=== PATIENT | male | born 1985 | race American Indian/Alaskan Native ===

== ENCOUNTER 2022-03-11 20:55 | Inpatient (IN) | payer OTHER ==
[2022-03-11] MEDS ORDERED: chlordiazePOXIDE 25 MG CAP PO PRN ×2 (21:58)
[2022-03-11] MEDS ORDERED: MIDAZOLAM 2 MG/2 ML INJ IV ONE (21:58)
[2022-03-11] MEDS ORDERED: ACETAMINOPHEN 500 MG TAB PO ONE (21:58)
[2022-03-11] MEDS ORDERED: LORazepam 2 MG/ML VIAL IV PRN (21:58)
[2022-03-11] MEDS ORDERED: SODIUM CHLORIDE 0.9% 1000 ML 1,000 ML IV ONE (21:58)
[2022-03-11] MEDS ORDERED: KETOROLAC 30 MG/1 ML INJ IV ONE (21:59)
[2022-03-11] MEDS ORDERED: METOCLOPRAMIDE 10 MG/2 ML INJ IV ONE (22:02)
--- NOTE | 2022-03-11 22:08 | Emergency Department Report ---
ED General Adult HPI - General Chief complaint: Chest Pain Stated complaint: VOMITING/CHEST PAIN,LEG PAIN,CHILLS PUI?: Yes Time Seen by Provider: 03/11/22 21:48 Source: patient, EMS, RN notes reviewed Mode of arrival: Stretcher Limitations: No Limitations - History of Present Illness Initial comments: The patient was evaluated in the emergency department for symptoms described in the history of present illness. He/she was evaluated in the context of the global COVID-19 pandemic, which necessitated consideration that the patient might be at risk for infection with the virus that causes COVID-19. Institutional protocols and algorithms that pertain to the evaluation of patients at risk for COVID-19 are in a state of rapid change based on information released by regulatory bodies including the CDC and federal and state organizations. These policies and algorithms were followed during the patient's care in the emergency department. Please note that these policies, procedures and recommendations changed on a rapid basis. This is a 36-year-old gentleman, with a past medical history of hyperlipidemia, currently on a statin, and metoprolol, also taking a multivitamin, folic acid. Also takes magnesium supplementation. Reports he is recently diagnosed with colon cancer. He is not currently on chemotherapy or radiation therapy. He reports she has received his COVID-19 vaccination. He presents to the emergency department today with complaints of diffuse myalgias, body aches, chills, headache, chest wall pain, nausea, vomiting. No loss of taste or smell. Has not taken any medication [id number]. He reports he consumes recreational alcohol, but he he denies chronic/heavy alcohol use. He is not homicidal or suicidal. He reports she is taking folic acid and multivitamin, because of "low vitamin levels." -: days(s) Location: head, chest Consistency: constant Improves with: rest Worsens with: movement - Related Data Allergies Allergy/AdvReac Type Severity Reaction Status Date / Time No Known Allergies Allergy Unverified 03/11/22 21:33 ED Review of Systems ROS: Stated complaint: VOMITING/CHEST PAIN,LEG PAIN,CHILLS Other details as noted in HPI Constitutional: chills, malaise, weakness Eyes: denies: eye discharge ENT: denies: epistaxis Respiratory: denies: cough Cardiovascular: chest pain Gastrointestinal: denies: abdominal pain, diarrhea Genitourinary: denies: dysuria Musculoskeletal: arthralgia, myalgia Neurological: headache, weakness Psychiatric: anxiety. denies: homicidal thoughts, suicidal thoughts ED Past Medical Hx - Past Medical History Previous Medical History?: Yes Hx Hypertension: Yes Hx of Cancer: Yes (Colon) - Surgical History Past Surgical History?: No - Social History Smoking Status: Current Every Day Smoker Substance Use Type: None ED Physical Exam - General Limitations: No Limitations General appearance: alert, anxious, in distress - Head Head exam: Present: atraumatic, normocephalic - Eye Eye exam: Present: normal appearance, EOMI. Absent: nystagmus - ENT ENT exam: Present: mucous membranes dry, normal external ear exam, other (Tongue fasciculations noted) - Neck Neck exam: Present: normal inspection, full ROM. Absent: tenderness, meningismus - Respiratory Respiratory exam: Present: normal lung sounds bilaterally. Absent: respiratory distress, wheezes, rales, rhonchi, stridor, decreased breath sounds - Cardiovascular Cardiovascular Exam: Present: normal rhythm, tachycardia, normal heart sounds. Absent: bradycardia, irregular rhythm, systolic murmur, diastolic murmur, rubs, gallop - GI/Abdominal GI/Abdominal exam: Present: soft. Absent: distended, tenderness, guarding, rebound, rigid, pulsatile mass - Rectal Rectal exam: Present: deferred - Extremities Exam Extremities exam: Present: normal inspection, full ROM, other (2+ pulses noted in the bilateral upper and lower extremities. There is no palpable cord. negative Homans sign. Muscular compartments are soft. The pelvis is stable.). Absent: pedal edema, calf tenderness - Back Exam Back exam: Present: normal inspection. Absent: tenderness, CVA tenderness (R), CVA tenderness (L), paraspinal tenderness, vertebral tenderness - Neurological Exam Neurological exam: Present: alert, oriented X3, other (No facial droop. Tongue midline. Extraocular movements intact bilaterally. Facial sensation intact to light touch in V1, V2, V3 distribution bilaterally. 5 and a 5 strength in 4 extremities. Sensation intact to light touch in 4 extremities.). Absent: motor sensory deficit - Psychiatric Psychiatric exam: Present: anxious. Absent: homicidal ideation, suicidal ideation - Skin Skin exam: Present: warm, dry, intact, normal color. Absent: rash ED Course Vital Signs 03/11/22 03/11/2222 21:33 21:55 22:01 Temperature 98.9 F Pulse Rate 102 H 99 H 110 H Respiratory 18 22 21 Rate Blood Pressure 127/89 111/75 Blood Pressure 111/75 [Left] O2 Sat by Pulse 100 99 98 Oximetry O2 Sat by Pulse Oximetry [ Digit-Finger] 03/11/22 03/11/22 03/11/22 22:15 22:25 22:27 Temperature Pulse Rate 85 Respiratory 19 18 18 Rate Blood Pressure 115/68 Blood Pressure [Left] O2 Sat by Pulse 99 Oximetry O2 Sat by Pulse Oximetry [ Digit-Finger] 03/11/22 03/11/22 03/11/22 22:30 22:45 23:00 Temperature Pulse Rate 100 H 102 H 111 H Respiratory 15 23 22 Rate Blood Pressure 109/71 120/81 132/84 Blood Pressure [Left] O2 Sat by Pulse 97 96 99 Oximetry O2 Sat by Pulse Oximetry [ Digit-Finger] 03/11/22 03/11/22 03/11/22 23:16 23:30 23:46 Temperature Pulse Rate 109 H 111 H 95 H Respiratory 23 26 H 20 Rate Blood Pressure 109/71 104/60 107/57 Blood Pressure [Left] O2 Sat by Pulse 97 95 95 Oximetry O2 Sat by Pulse Oximetry [ Digit-Finger] 03/12/22 03/12/22 03/12/22 00:00 00:14 00:16 Temperature Pulse Rate 106 H 95 H Respiratory 26 H 25 H Rate Blood Pressure 116/81 129/80 Blood Pressure [Left] O2 Sat by Pulse 96 96 Oximetry O2 Sat by Pulse 99 Oximetry [ Digit-Finger] 03/12/22 03/12/22 00:30 01:00 Temperature Pulse Rate 87 120 H Respiratory 26 H 27 H Rate Blood Pressure 129/80 116/72 Blood Pressure [Left] O2 Sat by Pulse 95 Oximetry O2 Sat by Pulse Oximetry [ Digit-Finger] - Reevaluation(s) Reevaluation #1: 03/11/22 22:07 Differential diagnosis, include but not limited to: Influenza, COVID, pneumonia, viremia, electrolyte derangement, thyroid derangement, alcohol withdrawal Assessment and plan: 36-year-old gentleman, who is currently afebrile, with tachycardic, rigors, shaking, reports chills, with dry mucous membranes, and mild tongue fasciculations. He is clinically sober at this time, and does not require 1013. I suspect the patient is downplaying his alcohol use, and I do suspect a component of alcohol withdrawal. I also suspect probable viremia. He reports he is not currently taking chemotherapy or radiation therapy. This emergency room currently does not have access to rapid access COVID testing. We will check him for influenza, obtain appropriate laboratory studies, x-ray the chest. Presuming troponin negative x1, patient at low risk for major adverse cardiac event as per heart score. Denies travel, surgery, immobilization, DVT/PE risk factors. Symptoms going on for days, so troponin negative x1, acute myocardial infarction is ruled out. Discussed the plan of care with the patient. He is agreeable. 03/11/22 23:28 Vomiting resolved. Heart rate 95 bpm. Resting comfortably in stretcher. No acute distress 03/11/22 23:56 Patient is found to have anemia, thrombocytopenia, hypokalemia, hypomagnesemia, hypocalcemia, and transaminitis, as well as hypoalbuminemia. This is suggestive of alcoholic disease. Have recommended admission to the medical service for co rrection of electrolyte derangements and metabolic acidosis. Suspect that metabolic acidosis is secondary to alcoholic starvation ketosis, as well as nausea and vomiting, likely secondary to presumed alcohol withdrawal. The patient is agreeable to admission hospitalization. Awaiting callback from hospital physician to arrange admission Reevaluation #2: 03/12/22 00:14 Dr Melba Macias to admit to [facility] 03/12/22 01:54 Suspect that lactic acidosis is a type II lactic acidosis. This should correct with addressing patient's underlying metabolic derangements and presumed alcohol withdrawal. Patient resting comfortably on stretcher at this time. - Pulse Oximetry Interpretation Digit-Finger Initial Pulse Oximetry Readin O2 Sat by Pulse Oximetry: 99 Actions Taken: none ED Medical Decision Making - Lab Data Result diagrams: 03/11/22 22:57 03/11/22 22:57 Vital Signs 03/11/22 03/11/22 21:33 21:55 Temperature 98.9 F Pulse Rate 102 H 99 H Respiratory 18 22 Rate Blood Pressure 127/89 Blood Pressure 111/75 [Left] O2 Sat by Pulse 100 99 Oximetry Lab Results 06/10/22 06/10/22 06/10/22 Range/Units 22:43 22:57 22:57 WBC 6.0 (4.5-11.0) K/mm3 RBC 3.13 L (3.65-5.03) M/mm3 Hgb 9.0 L (11.8-15.2) gm/dl Hct 27.4 L (35.5-45.6) % MCV 88 (84-94) fl MCH 29 (28-32) pg MCHC 33 (32-34) % RDW 29.1 H (13.2-15.2) % Plt Count 96 L (140-440) K/mm3 PT 15.7 H (12.2-14.9) Sec. INR 1.12 (0.87-1.13) Sodium (137-145) mmol/L Potassium (3.6-5.0) mmol/L Chloride (98-107) mmol/L Carbon Dioxide (22-30) mmol/L Anion Gap mmol/L BUN (9-20) mg/dL Creatinine (0.8-1.3) mg/dL Estimated GFR ml/min BUN/Creatinine Ratio % Glucose (75-100) mg/dL Calcium (8.4-10.2) mg/dL Phosphorus (2.5-4.5) mg/dL Magnesium (1.7-2.3) mg/dL Total Bilirubin (0.1-1.2) mg/dL AST (5-40) units/L ALT (7-56) units/L Alkaline Phosphatase (35-129) units/L Total Creatine Kinase (55-170) units/L Troponin T (0.00-0.029) ng/mL Total Protein (6.3-8.2) g/dL Albumin (3.9-5) g/dL Albumin/Globulin Ratio % TSH (0.270-4.200) mlU/mL Urine Color [place] (Yellow) Urine Turbidity Clear (Clear) Urine pH 6.0 (5.0-7.0) Ur Specific [place] 1.020 (1.003-1.030) Urine Protein 30 mg/dl (Negative) mg/dL Urine Glucose (UA) 50 (Negative) mg/dL Urine Ketones Tr (Negative) mg/dL Urine Blood Neg (Negative) Urine Nitrite Neg (Negative) Urine Bilirubin Neg (Negative) Urine Urobilinogen < 2.0 (<2.0) mg/dL Ur Leukocyte Esterase Neg (Negative) Urine WBC (Auto) 3.0 (0.0-6.0) /HPF Urine RBC (Auto) < 1.0 (0.0-6.0) /HPF U Epithel Cells (Auto) < 1.0 (0-13.0) /HPF Hyaline Casts 2 /LPF Urine Mucus Few /HPF 03/11/22 03/11/22 Range/Units 22:57 22:57 WBC (4.5-11.0) K/mm3 RBC (3.65-5.03) M/mm3 Hgb (11.8-15.2) gm/dl Hct (35.5-45.6) % MCV (84-94) fl MCH (28-32) pg MCHC (32-34) % RDW (13.2-15.2) % Plt Count (140-440) K/mm3 PT (12.2-14.9) Sec. INR (0.87-1.13) Sodium 141 (137-145) mmol/L Potassium 2.7 L* (3.6-5.0) mmol/L Chloride 95.0 L (98-107) mmol/L Carbon Dioxide 24 (22-30) mmol/L Anion Gap 25 mmol/L BUN 2 L (9-20) mg/dL Creatinine 0.9 (0.8-1.3) mg/dL Estimated GFR > 60 ml/min BUN/Creatinine Ratio 2 % Glucose 107 H (75-100) mg/dL Calcium 7.5 L (8.4-10.2) mg/dL Phosphorus 2.70 (2.5-4.5) mg/dL Magnesium 0.70 L* (1.7-2.3) mg/dL Total Bilirubin 1.50 H (0.1-1.2) mg/dL AST 91 H (5-40) units/L ALT 44 (7-56) units/L Alkaline Phosphatase 120 (35-129) units/L Total Creatine Kinase 70 (55-170) units/L Troponin T < 0.010 (0.00-0.029) ng/mL Total Protein 8.2 (6.3-8.2) g/dL Albumin 3.1 L (3.9-5) g/dL Albumin/Globulin Ratio 0.6 % TSH 4.900 H (0.270-4.200) mlU/mL Urine Color (Yellow) Urine Turbidity (Clear) Urine pH (5.0-7.0) Ur Specific [place] (1.003-1.030) Urine Protein (Negative) mg/dL Urine Glucose (UA) (Negative) mg/dL Urine Ketones (Negative) mg/dL Urine Blood (Negative) Urine Nitrite (Negative) Urine Bilirubin (Negative) Urine Urobilinogen (<2.0) mg/dL Ur Leukocyte Esterase (Negative) Urine WBC (Auto) (0.0-6.0) /HPF Urine RBC (Auto) (0.0-6.0) /HPF U Epithel Cells (Auto) (0-13.0) /HPF Hyaline Casts /LPF Urine Mucus /HPF - EKG Data 03/11/22 22:09 The EKG is interpreted by myself at 21: 5 5 Sinus rhythm, 79 bpm. Normal axis. Normal P wave axis. Motion artifact. Multiple PVCs. Abnormal EKG. Not a STEMI - Radiology Data Radiology results: pending, report reviewed, image reviewed interpreted by me: 1 view x-ray of the chest interpreted myself, shows clear lungs, no infiltrate, no pneumothorax. Unremarkable bony anatomy CHEST 1 VIEW INDICATION / CLINICAL INFORMATION: cp weakness. COMPARISON: None available. FINDINGS: SUPPORT DEVICES: None. HEART / MEDIASTINUM: No significa nt abnormality. LUNGS / PLEURA: No significant pulmonary abnormality. BONES: No significant osseous abnormality. ADDITIONAL FINDINGS: No significant additional findings. IMPRESSION: 1. No active cardiopulmonary disease. Signer Name: Otis West II, MD Signed: 03/11/2022 9:29 PM Workstation Name: [id number] Critical care attestation.: If time is entered above; I have spent that time in minutes in the direct care of this critically ill patient, excluding procedure time. ED Disposition Clinical Impression: Metabolic acidosis, Hypokalemia, Hypomagnesemia, Thrombocytopenia, Anemia, Transaminitis, Malnutrition Disposition: 09 ADMITTED INPATIENT Is pt being admited?: Yes Does the pt Need Aspirin: No Condition: Good
--- NOTE | 2022-03-11 22:34 | XRay Report ---
CHEST 1 VIEW INDICATION / CLINICAL INFORMATION: cp weakness. COMPARISON: None available. FINDINGS: SUPPORT DEVICES: None. HEART / MEDIASTINUM: No significant abnormality. LUNGS / PLEURA: No significant pulmonary abnormality. BONES: No significant osseous abnormality. ADDITIONAL FINDINGS: No significant additional findings. IMPRESSION: 1. No active cardiopulmonary disease. Signer Name: Otis West II, MD Signed: 03/11/2022 10:29 PM Workstation Name: [id number]
[2022-03-11 23:21] LABS: Bilirubin,Urine NEG (Negative); Blood,Urine NEG (Negative); Color,Urine Amber (Yellow); Hyaline Casts,Urine 2 /LPF; Mucus,Urine FEW /HPF; RBC,Urine < 1.0 /HPF (0.0-6.0); Urobilinogen,Urine < 2.0 mg/dL (<2.0)
[2022-03-11 23:27] LABS: Hematocrit 27.4 % (35.5-45.6); Mean Corpuscular HGB Conc 33 % (32-34); Mean Corpuscular Volume 88 fl (84-94); Red Blood Count 3.13 M/mm3 (3.65-5.03)
[2022-03-11 23:28] LABS: Platelet Count 96 K/mm3 (140-440); Red Cell Distribution Width 29.1 % (13.2-15.2)
[2022-03-11 23:33] LABS: INR 1.12 (0.87-1.13)
[2022-03-11 23:41] LABS: Alanine Aminotransferase 44 units/L (7-56); Albumin 3.1 g/dL (3.9-5); BUN/Creatinine Ratio 2; Blood Urea Nitrogen 2 mg/dL (9-20); Calcium 7.5 mg/dL (8.4-10.2); Hemolysis Index 5
[2022-03-11] MEDS ORDERED: POTASSIUM CHLORIDE 20 MEQ 20 MEQ/100 ML BAG IV SCH (23:45)
[2022-03-11] MEDS ORDERED: MAGNESIUM SULFATE 2 GM/50 ML BAG IV ONE (23:53)
[2022-03-11] MEDS ORDERED: MULTIPLE VITAMIN IV ONE (23:53)
[2022-03-11] MEDS ORDERED: [UNRECOGNIZED DRUG - OTHER] IV ONE (23:53)
[2022-03-11] MEDS ORDERED: CALCIUM CARBONATE 500 MG TAB CHEW PO ONE (23:53)
[2022-03-11] MEDS ORDERED: THIAMINE IV ONE (23:53)
[2022-03-11] MEDS ORDERED: POTASSIUM CHLORIDE ER 20 MEQ TAB PO ONE (23:53)
[2022-03-11] MEDS ORDERED: FOLIC ACID IV ONE (23:53)
[2022-03-11] MEDS ORDERED: MAGNESIUM OXIDE 400 MG TAB PO STA (23:53)
[2022-03-12 00:06] LABS: Basophils % (Manual) 0 % (0.0-1.8); Eosinophils % (Manual) 0 % (0.0-4.3); Total Cells Counted 100
[2022-03-12 00:07] LABS: Hypochromasia 2+; Ovalocytes Few; Platelet Estimate Consistent w Auto; Poikilocytosis 1+; Target Cells 1+
[2022-03-12] MEDS: LORazepam 2 MG/ML VIAL IV PRN ×2 (00:44→04:47)
[2022-03-12] MEDS ORDERED: CALCIUM CARBONATE 500 MG TAB CHEW PO ONE (01:00)
[2022-03-12] MEDS ORDERED: ONDANSETRON 4 MG/2 ML INJ ONE (01:01)
[2022-03-12] MEDS ORDERED: MORPHINE 2 MG/1 ML INJ IV PRN (01:08)
[2022-03-12] MEDS ORDERED: IBUPROFEN 600 MG TAB PO PRN (01:08)
[2022-03-12] MEDS ORDERED: ONDANSETRON 4 MG/2 ML INJ IV PRN (01:08)
[2022-03-12] MEDS ORDERED: MAGNESIUM HYDROXIDE (MOM) ORAL LIQD UDC PO PRN (01:08)
[2022-03-12] MEDS ORDERED: MORPHINE 4 MG/1 ML INJ IV PRN (01:08)
[2022-03-12] MEDS ORDERED: SODIUM CHLORIDE 0.9% 1000 ML 1,000 ML IV SCH (01:15)
--- NOTE | 2022-03-12 01:27 | History and Physical Report ---
History of Present Illness Date of examination: 03/12/22 Date of admission: 03/12/2022 Chief complaint: Generalized body aches and Pain History of present illness: 36-year-old -[place] male with known history of hypertension, hyperlipidemia and history of alcohol abuse presenting to the emergency room today complaining of generalized body aches/pain, chills, nausea and vomiting. Patient states he was recently diagnosed with colon cancer but has not been p laced on any chemotherapy or radiation therapy. He admits that he was an alcoholic in the past but has been trying to cut back on his alcohol intake. Last alcohol intake was few days ago. He denies any chest pain or shortness of breath, denies any sick contacts and no recent travel. He has been vaccinated against COVID-19. Work-up in the emergency room today, labs significant for potassium of 2.7, lactic acid of 7.1, magnesium of 0.7, alcohol level of less than 0.01 hemoglobin of 9 and hematocrit of 27.4. AST of 91. Total bilirubin of 1.5. Chest x-ray was unremarkable. Past History Past Medical History: hypertension, other (Recently diagnosed colon cancer) Past Surgical History: No surgical history Social history: smoking (Current daily smoker), alcohol abuse (Former alcoholic) Family history: no significant family history Medications and Allergies Allergies Allergy/AdvReac Type Severity Reaction Status Date / Time No Known Allergies Allergy Unverified 03/11/22 21:33 Active Meds: Active Medications Chlordiazepoxide HCl (Chlordiazepoxide 25 Mg Cap) 50 mg PO Q1H PRN PRN Reason: CIWA-Ar 8-15 Chlordiazepoxide HCl (Chlordiazepoxide 25 Mg Cap) 100 mg PO Q1H PRN PRN Reason: CIWA-Ar 16-25 Heparin Sodium (Porcine) (Heparin 5,000 Unit/1 Ml Vial) 5,000 unit SUB-Q Q8HR YOLANDA Thiamine HCl 100 mg/ Folic Acid 1 mg/ Multivitamins/Minerals 10 ml/ Potassium Chloride 60 meq/ Sodium Chloride 1,041.2 mls @ 250 mls/hr IV ONCE ONE Stop: 03/12/22 04:02 Last Admin: 03/12/22 00:36 Dose: 250 mls/hr Sodium Chloride (Nacl 0.9% 1000 Ml) 1,000 mls @ 125 mls/hr IV DIRECT YOLANDA Ibuprofen (Ibuprofen 600 Mg Tab) 600 mg PO Q6H PRN PRN Reason: Pain, Mild (1-3) Lorazepam (Lorazepam 2 Mg/Ml Vial) 2 mg IV Q1H PRN PRN Reason: CIWA-Ar 8-15 Last Admin: 03/12/22 00:44 Dose: 2 mg Lorazepam (Lorazepam 2 Mg/Ml Vial) 4 mg IV Q1H PRN PRN Reason: JULIA-Ja 16-25 Magnesium Hydroxide (Magnesium Hydroxide (Mom) Oral Liqd Udc) 30 ml PO Q4H PRN PRN Reason: Constipation Morphine Sulfate (Morphine 2 Mg/1 Ml Inj) 2 mg IV Q4H PRN PRN Reason: Pain, Moderate (4-6) Morphine Sulfate (Morphine 4 Mg/1 Ml Inj) 4 mg IV Q4H PRN PRN Reason: Pain , Severe (7-10) Ondansetron HCl (Ondansetron 4 Mg/2 Ml Inj) 4 mg IV Q8H PRN PRN Reason: Nausea And Vomiting Sodium Chloride (Sodium Chloride 0.9% 10 Ml Flush Syringe) 10 ml IV BID YOLANDA Sodium Chloride (Sodium Chloride 0.9% 10 Ml Flush Syringe) 10 ml IV PRN PRN PRN Reason: LINE FLUSH Review of Systems Constitutional: fatigue, no fever, no chills Ears, nose, mouth and throat: no nasal congestion, no sore throat Cardiovascular: no chest pain, no palpitations Respiratory: no cough, no shortness of breath Gastrointestinal: nausea, vomiting, no abdominal pain, no diarrhea Genitourinary Male: no dysuria, no hematuria, no flank pain Musculoskeletal: no neck pain, no low back pain Integumentary: no rash, no pruritis Neurological: no headaches, no confusion Psychiatric: no anxiety, no depression Endocrine: no polyphagia, no polydipsia, no polyuria, no nocturia Exam - Constitutional Vitals: Temp Pulse Resp BP Pulse Ox 98.9 F 120 H 27 H 116/72 95 03/11/22 21:33 03/12/22 01:00 03/12/22 01:00 03/12/22 01:00 03/12/22 01:00 General appearance: Present: no acute distress, well-nourished - EENT Eyes: Present: PERRL, EOM intact. Absent: scleral icterus ENT: hearing intact, clear oral mucosa, dentition normal - Neck Neck: Present: supple, normal ROM - Respiratory Respiratory effort: normal Respiratory: bilateral: CTA - Cardiovascular Rhythm: regular Heart Sounds: Present: S1 & S2. Absent: gallop, systolic murmur, diastolic murmur, rub, click - Extremities Extremities: no ischemia, pulses intact, pulses symmetrical, No edema, normal temperature, normal color, Full ROM Peripheral Pulses: within normal limits - Abdominal General gastrointestinal: Present: soft, non-tender, non-distended, normal bowel sounds. Absent: mass - Integumentary Integumentary: Present: clear, warm, dry, normal turgor. Absent: rash - Musculoskeletal Musculoskeletal: strength equal bilaterally - Psychiatric Psychiatric: appropriate mood/affect, intact judgment & insight, memory intact, cooperative - Neurologic Neurologic: CNII-XII intact, no focal deficits, moves all extremities, other (Appears anxious and tremulous) HEART Score - HEART Score Troponin: Troponin T < 0.010 ng/mL (0.00-0.029) 03/11/22 22:57 Results - Labs CBC & Chem 7: 03/11/22 22:57 03/11/22 22:57 Labs: Abnormal lab results 03/11/22 03/11/22 03/11/22 Range/Units 00:00 00:00 22:57 RBC 3.13 L (3.65-5.03) M/mm3 Hgb 9.0 L (11.8-15.2) gm/dl Hct 27.4 L (35.5-45.6) % RDW 29.1 H (13.2-15.2) % Plt Count 96 L (140-440) K/mm3 Seg Neuts % (Manual) 84.0 H (40.0-70.0) % Lymphocytes % (Manual) 12.0 L (13.4-35.0) % Lymphocytes # (Manual) 0.7 L (1.2-5.4) K/mm3 PT (12.2-14.9) Sec. Potassium (3.6-5.0) mmol/L Chloride (98-107) mmol/L BUN (9-20) mg/dL Glucose (75-100) mg/dL Lactic Acid (0.7-2.0) mmol/L Calcium (8.4-10.2) mg/dL Magnesium (1.7-2.3) mg/dL Total Bilirubin (0.1-1.2) mg/dL AST (5-40) units/L Albumin (3.9-5) g/dL TSH (0.270-4.200) mlU/mL Salicylates < 0.3 L (2.8-20.0) mg/dL Acetaminophen 5.0 L (10.0-30.0) ug/mL 03/11/22 03/11/22 03/11/22 Range/Units 22:57 22:57 22:57 RBC (3.65-5.03) M/mm3 Hgb (11.8-15.2) gm/dl Hct (35.5-45.6) % RDW (13.2-15.2) % Plt Count (140-440) K/mm3 Seg Neuts % (Manual) (40.0-70.0) % Lymphocytes % (Manual) (13.4-35.0) % Lymphocytes # (Manual) (1.2-5.4) K/mm3 PT 15.7 H (12.2-14.9) Sec. Potassium 2.7 L* (3.6-5.0) mmol/L Chloride 95.0 L (98-107) mmol/L BUN 2 L (9-20) mg/dL Glucose 107 H (75-100) mg/dL Lactic Acid (0.7-2.0) mmol/L Calcium 7.5 L (8.4-10.2) mg/dL Magnesium 0.70 L* (1.7-2.3) mg/dL Total Bilirubin 1.50 H (0.1-1.2) mg/dL AST 91 H (5-40) units/L Albumin 3.1 L (3.9-5) g/dL TSH 4.900 H (0.270-4.200) mlU/mL Salicylates (2.8-20.0) mg/dL Acetaminophen (10.0-30.0) ug/mL 03/11/22 Range/Units 22:57 RBC (3.65-5.03) M/mm3 Hgb (11.8-15.2) gm/dl Hct (35.5-45.6) % RDW (13.2-15.2) % Plt Count (140-440) K/mm3 Seg Neuts % (Manual) (40.0-70.0) % Lymphocytes % (Manual) (13.4-35.0) % Lymphocytes # (Manual) (1.2-5.4) K/mm3 PT (12.2-14.9) Sec. Potassium (3.6-5.0) mmol/L Chloride (98-107) mmol/L BUN (9-20) mg/dL Glucose (75-100) mg/dL Lactic Acid 7.10 H* (0.7-2.0) mmol/L Calcium (8.4-10.2) mg/dL Magnesium (1.7-2.3) mg/dL Total Bilirubin (0.1-1.2) mg/dL AST (5-40) units/L Albumin (3.9-5) g/dL TSH (0.270-4.200) mlU/mL Salicylates (2.8-20.0) mg/dL Acetaminophen (10.0-30.0) ug/mL Assessment and Plan Assessment: 1. Hypokalemia 2. Hypomagnesemia 3. Lactic acidosis 4. Alcohol abuse with withdrawal symptoms 5. Tobacco abuse 6. Elevated liver enzyme Plan: 1. Patient admitted and placed on IV fluid 2. Will place on CIWA protocol. 3. Patient will also be given a banana bag containing multivitamins and folic acid 4. We will resume routine home medications once reconciled. 5. Patient counseled on quitting tobacco and alcohol abuse. 6. Consult placed to gastroenterology for evaluation and recommendations DVT prophylaxis: Subcutaneous heparin CODE STATUS: Full code
[2022-03-12] MEDS: HEPARIN 5,000 UNIT/1 ML VIAL SUB-Q SCH ×3 (05:12→21:45)
--- NOTE | 2022-03-12 11:07 | Progress Note ---
Assessment and Plan Assessment and plan: 36-year-old -[place] male with known history of hypertension, hyperlipidemia and history of alcohol abuse presenting to the emergency room complaining of generalized body aches/pain, chills, nausea and vomiting. Patient reported he was recently diagnosed with colon cancer but has not been placed on any chemotherapy or radiation therapy. He admitted that he was an alcoholic in the past but has been trying to cut back on his alcohol intake. Last alcohol intake was few days ago. Work-up in the emergency room revealed labs significant for potassium of 2.7, lactic acid of 7.1, magnesium of 0.7, alcohol level of less than 0.01 hemoglobin of 9 and hematocrit of 27.4. AST of 91. Total bilirubin of 1.5. ETOH abuse hypokalemia lactic acidosis tobacco abuse 03/12/22. Lactic acidosis has resolved. Continue IVF hydration and potassium repletion. Anticipate d/c in am History Interval history: No new issues Hospitalist Physical - Constitutional Vitals: Temp Pulse Resp BP Pulse Ox 98.8 F 109 H 18 106/67 98 03/12/22 03:39 03/12/22 03:39 03/12/22 03:39 03/12/22 03:39 03/12/22 07:03 General appearance: Present: no acute distress, well-nourished - EENT Eyes: Present: PERRL, EOM intact ENT: hearing intact, clear oral mucosa, dentition normal - Neck Neck: Present: supple, normal ROM - Respiratory Respiratory effort: normal Respiratory: bilateral: CTA - Cardiovascular Rhythm: regular Heart Sounds: Present: S1 & S2. Absent: gallop, rub - Extremities Extremities: no ischemia, No edema, Full ROM - Abdominal General gastrointestinal: soft, non-tender, non-distended, normal bowel sounds - Integumentary Integumentary: Present: clear, warm, dry - Neurologic Neurologic: CNII-XII intact, moves all extremities HEART Score - HEART Score Troponin: Troponin T < 0.010 ng/mL (0.00-0.029) 03/11/22 22:57 Results - Labs CBC & Chem 7: 03/11/22 22:57 06 22:57 Labs: Laboratory Last Values WBC 6.0 K/mm3 (4.5-11.0) 03/11/22 22:57 RBC 3.13 M/mm3 (3.65-5.03) L 03/11/22 22:57 Hgb 9.0 gm/dl (11.8-15.2) L 03/11/22 22:57 Hct 27.4 % (35.5-45.6) L 03/11/22 22:57 MCV 88 fl (84-94) 03/11/22 22:57 MCH 29 pg (28-32) 03/11/22 22:57 MCHC 33 % (32-34) 03/11/22 22:57 RDW 29.1 % (13.2-15.2) H 03/11/22 22:57 Plt Count 96 K/mm3 (140-440) L 03/11/22 22:57 Add Manual Diff Complete 03/11/22 22:57 Total Counted 100 03/11/22 22:57 Seg Neuts % (Manual) 84.0 % (40.0-70.0) H 03/11/22 22:57 Band Neutrophils % 0 % 03/11/22 22:57 Lymphocytes % (Manual) 12.0 % (13.4-35.0) L 03/11/22 22:57 Reactive Lymphs % (Man) 0 % 03/11/22 22:57 Monocytes % (Manual) 4.0 % (0.0-7.3) 03/11/22 22:57 Eosinophils % (Manual) 0 % (0.0-4.3) 03/11/22 22:57 Basophils % (Manual) 0 % (0.0-1.8) 03/11/22 22:57 Metamyelocytes % 0 % 03/11/22 22:57 Myelocytes % 0 % 03/11/22 22:57 Promyelocytes % 0 % 03/11/22 22:57 Blast Cells % 0 % 03/11/22 22:57 Nucleated RBC % Not Reportable 03/11/22 22:57 Seg Neutrophils # Man 5.0 K/mm3 (1.8-7.7) 03/11/22 22:57 Band Neutrophils # 0.0 K/mm3 03/11/22 22:57 Lymphocytes # (Manual) 0.7 K/mm3 (1.2-5.4) L 03/11/22 22:57 Abs React Lymphs (Man) 0.0 K/mm3 03/11/22 22:57 Monocytes # (Manual) 0.2 K/mm3 (0.0-0.8) 03/11/22 22:57 Eosinophils # (Manual) 0.0 K/mm3 (0.0-0.4) 03/11/22 22:57 Basophils # (Manual) 0.0 K/mm3 (0.0-0.1) 03/11/22 22:57 Metamyelocytes # 0.0 K/mm3 03/11/22 22:57 Myelocytes # 0.0 K/mm3 03/11/22 22:57 Promyelocytes # 0.0 K/mm3 03/11/22 22:57 Blast Cells # 0.0 K/mm3 03/11/22 22:57 WBC Morphology Not Reportable 03/11/22 22:57 Hypersegmented Neuts Not Reportable 03/11/22 22:57 Hyposegmented Neuts Not Reportable 03/11/22 22:57 Hypogranular Neuts Not Reportable 03/11/22 22:57 Smudge Cells Not Reportable 03/11/22 22:57 Toxic Granulation Not Reportable 03/11/22 22:57 Toxic Vacuolation Not Reportable 03/11/22 22:57 Dohle Bodies Not Reportable 03/11/22 22:57 Pelger-Huet Anomaly Not Reportable 03/11/22 22:57 Jen Rods Not Reportable 03/11/22 22:57 Platelet Estimate Consistent w auto 03/11/22 22:57 Clumped Platelets Not Reportable 03/11/22 22:57 Plt Clumps, EDTA Not Reportable 03/11/22 22:57 Large Platelets Not Reportable 03/11/22 22:57 Giant Platelets Not Reportable 03/11/22 22:57 Platelet Satelliting Not Reportable 03/11/22 22:57 Plt Morphology Comment Not Reportable 03/11/22 22:57 RBC Morphology Not Reportable 03/11/22 22:57 Dimorphic RBCs Not Reportable 03/11/22 22:57 Polychromasia Not Reportable 03/11/22 22:57 Hypochromasia 2+ 03/11/22 22:57 Poikilocytosis 1+ 03/11/22 22:57 Anisocytosis Not Reportable 03/11/22 22:57 Microcytosis 1+ 03/11/22 22:57 Macrocytosis Not Reportable 03/11/22 22:57 Spherocytes Not Reportable 03/11/22 22:57 Pappenheimer Bodies Not Reportable 03/11/22 22:57 Sickle Cells Not Reportable 03/11/22 22:57 Target Cells 1+ 03/11/22 22:57 Tear Drop Cells Not Reportable 03/11/22 22:57 Ovalocytes Few 03/11/22 22:57 Helmet Cells Not Reportable 03/11/22 22:57 [place] Bodies Not Reportable 03/11/22 22:57 Dal[place]ell Rings Not Reportable 03/11/22 22:57 Anya Cells Not Reportable 03/11/22 22:57 Bite Cells Not Reportable 03/11/22 22:57 Crenated Cell Not Reportable 03/11/22 22:57 Elliptocytes Few 03/11/22 22:57 Acanthocytes (Spur) Not Reportable 03/11/22 22:57 Rouleaux Not Reportable 03/11/22 22:57 Hemoglobin C Crystals Not Reportable 03/11/22 22:57 Schistocytes Not Reportable 03/11/22 22:57 Malaria parasites Not Reportable 03/11/22 22:57 Shahram Bodies Not Reportable 03/11/22 22:57 Hem Pathologist Commnt No 03/11/22 22:57 PT 15.7 Sec. (12.2-14.9) H 03/11/22 22:57 INR 1.12 (0.87-1.13) 03/11/22 22:57 Sodium 141 mmol/L (137-145) 03/11/22 22:57 Potassium 2.7 mmol/L (3.6-5.0) L* 03/11/22 22:57 Chloride 95.0 mmol/L (98-107) L 03/11/22 22:57 Carbon Dioxide 24 mmol/L (22-30) 03/11/22 22:57 Anion Gap 25 mmol/L 03/11/22 22:57 BUN 2 mg/dL (9-20) L 03/11/22 22:57 Creatinine 0.9 mg/dL (0.8-1.3) 03/11/22 22:57 Estimated GFR > 60 ml/min 03/11/22 22:57 BUN/Creatinine Ratio 2 % 03/11/22 22:57 Glucose 107 mg/dL (75-100) H 03/11/22 22:57 Lactic Acid 1.70 mmol/L (0.7-2.0) 03/12/22 08:29 Calcium 7.5 mg/dL (8.4-10.2) L 03/11/22 22:57 Phosphorus 2.70 mg/dL (2.5-4.5) 03/11/22 22:57 Magnesium 0.70 mg/dL (1.7-2.3) L* 03/11/22 22:57 Total Bilirubin 1.50 mg/dL (0.1-1.2) H 03/11/22 22:57 AST 91 units/L (5-40) H 03/11/22 22:57 ALT 44 units/L (7-56) 03/11/22 22:57 Alkaline Phosphatase 120 units/L (35-129) 03/11/22 22:57 Total Creatine Kinase 70 units/L (55-170) 03/11/22 22:57 Troponin T < 0.010 ng/mL (0.00-0.029) 03/11/22 22:57 Total Protein 8.2 g/dL (6.3-8.2) 03/11/22 22:57 Albumin 3.1 g/dL (3.9-5) L 03/11/22 22:57 Albumin/Globulin Ratio 0.6 % 03/11/22 22:57 TSH 4.900 mlU/mL (0.270-4.200) H 03/11/22 22:57 Urine Color Linda (Yellow) 03/11/22 22:43 Urine Turbidity Clear (Clear) 03/11/22 22:43 Urine pH 6.0 (5.0-7.0) 03/11/22 22:43 Ur Specific [place] 1.020 (1.003-1.030) 03/11/22 22:43 Urine Protein 30 mg/dl mg/dL (Negative) 03/11/22 22:43 Urine Glucose (UA) 50 mg/dL (Negative) 03/11/22 22:43 Urine Ketones Tr mg/dL (Negative) 03/11/22 22:43 Urine Blood Neg (Negative) 03/11/22 22:43 Urine Nitrite Neg (Negative) 03/11/22 22:43 Urine Bilirubin Neg (Negative) 03/11/22 22:43 Urine Urobilinogen < 2.0 mg/dL (<2.0) 03/11/22 22:43 Ur Leukocyte Esterase Neg (Negative) 03/11/22 22:43 Urine WBC (Auto) 3.0 /HPF (0.0-6.0) 03/11/22 22:43 Urine RBC (Auto) < 1.0 /HPF (0.0-6.0) 03/11/22 22:43 U Epithel Cells (Auto) < 1.0 /HPF (0-13.0) 03/11/22 22:43 Hyaline Casts 2 /LPF 03/11/22 22:43 Urine Mucus Few /HPF 03/11/22 22:43 Salicylates < 0.3 mg/dL (2.8-20.0) L 03/11/22 00:00 Acetaminophen 5.0 ug/mL (10.0-30.0) L 03/11/22 00:00 Plasma/Serum Alcohol < 0.01 % (0-0.07) 03/11/22 22:57 Influenza A (RT-PCR) Negative (Negative) 03/11/22 21:58 Influenza B (RT-PCR) Negative (Negative) 03/11/22 21:58 Microbiology: Microbiology 03/11/22 22:57 Peripheral/Venous Blood Culture - Preliminary Culture in Progress 03/11/22 22:51 Peripheral/Venous Blood Culture - Preliminary Culture in Progress Active Medications - Current Medications Current Medications: Generic Name Dose Route Start Last Admin Trade Name Freq PRN Reason Stop Dose Admin Chlordiazepoxide HCl 50 mg 03/11/22 21:58 Chlordiazepoxide 25 Mg Cap PO Q1H PRN CIWA-Ar 8-15 Chlordiazepoxide HCl 100 mg 03/11/22 21:58 Chlordiazepoxide 25 Mg Cap PO Q1H PRN CIWA-Ar 16-25 Heparin Sodium (Porcine) 5,000 unit 03/12/22 06:00 03/12/22 05:12 Heparin 5,000 Unit/1 Ml Vial SUB-Q 5,000 unit Q8HR YOLANDA Administration Potassium Chloride/Sodium Chloride 40 meq in 1,000 mls @ 75 mls/hr 03/12/22 11:00 Ns/Kcl 40meq IV DIRECT YOLANDA Ibuprofen 600 mg 03/12/22 01:08 Ibuprofen 600 Mg Tab PO Q6H PRN Pain, Mild (1-3) Lorazepam 2 mg 03/11/22 21:58 03/12/22 04:47 Lorazepam 2 Mg/Ml Vial IV 2 mg Q1H PRN Administration CIWA-Ar 8-15 Lorazepam 4 mg 03/11/22 21:58 Lorazepam 2 Mg/Ml Vial IV Q1H PRN CIWA-Ar 16-25 Magnesium Hydroxide 30 ml 03/12/22 01:08 Magnesium Hydroxide (Mom) Oral Liqd Udc PO Q4H PRN Constipation Morphine Sulfate 2 mg 03/12/22 01:08 Morphine 2 Mg/1 Ml Inj IV Q4H PRN Pain, Moderate (4-6) Morphine Sulfate 4 mg 03/12/22 01:08 Morphine 4 Mg/1 Ml Inj IV Q4H PRN Pain , Severe (7-10) Ondansetron HCl 4 mg 03/12/22 01:08 Ondansetron 4 Mg/2 Ml Inj IV Q8H PRN Nausea And Vomiting Sodium Chloride 10 ml 03/12/22 10:00 03/12/22 09:00 Sodium Chloride 0.9% 10 Ml Flush Syringe IV Not Given BID YOLANDA Sodium Chloride 10 ml 03/12/22 01:08 Sodium Chloride 0.9% 10 Ml Flush Syringe IV PRN PRN LINE FLUSH
[2022-03-12 12:32] LABS: Blood Urea Nitrogen 3 mg/dL (9-20); Calcium 7.6 mg/dL (8.4-10.2); Hemolysis Index 27
[2022-03-12 12:36] LABS: BUN/Creatinine Ratio 4
--- NOTE | 2022-03-12 15:07 | Gastroenterology Consultation ---
History of Present Illness - Reason for Consult Consult date: 03/12/22 abnormal liver enzymes Requesting physician: ASHLEY JEROME - History of Present Illness The patient is a 36 yo male who presents with generalized weakness/fatigue, chills and n/v. Patient sleeping/arousable, somewhat of a poor historian, states he has felt unwell for a few days. he was found to have elevation in liver enzymes ( t bili b/w 1-2, ast ~2 x uln), h/o alcohol abuse. last intake a few days ago per pt. reports alcohol intake almost daily for 10 years. denies abd pain. states po intake was limited due to heartburn sx's. states he was recently at [facility] where he had ct scan, mri and colonoscopy but which showed a polyp/?? cancer - patient unable to provide details regarding this and records not available. he states he was to have outpatient f/u regarding this in the ne ar future. Past History Past Medical History: hypertension, other (Recently diagnosed colon cancer) Past Surgical History: No surgical history Social history: smoking (Current daily smoker), alcohol abuse (Former alcoholic) Family history: no significant family history Medications and Allergies Allergies Allergy/AdvReac Type Severity Reaction Status Date / Time No Known Allergies Allergy Unverified 03/11/22 21:33 Home Medications Medication Instructions Recorded Confirmed Last Taken Type No Known Home Medications [No 03/12/22 03/12/22 Unknown History Reported Home Medications] Active Meds: Active Medications Chlordiazepoxide HCl (Chlordiazepoxide 25 Mg Cap) 50 mg PO Q1H PRN PRN Reason: CIWA-Ar 8-15 Chlordiazepoxide HCl (Chlordiazepoxide 25 Mg Cap) 100 mg PO Q1H PRN PRN Reason: CIWA-Ar 16-25 Heparin Sodium (Porcine) (Heparin 5,000 Unit/1 Ml Vial) 5,000 unit SUB-Q Q8HR YOLANDA Last Admin: 03/12/22 13:47 Dose: 5,000 unit Potassium Chloride/Sodium Chloride (Ns/Kcl 40meq) 40 meq in 1,000 mls @ 75 mls/hr IV DIRECT YOLANDA Ibuprofen (Ibuprofen 600 Mg Tab) 600 mg PO Q6H PRN PRN Reason: Pain, Mild (1-3) Lorazepam (Lorazepam 2 Mg/Ml Vial) 2 mg IV Q1H PRN PRN Reason: CIWA-Ar 8-15 Last Admin: 03/12/22 04:47 Dose: 2 mg Lorazepam (Lorazepam 2 Mg/Ml Vial) 4 mg IV Q1H PRN PRN Reason: CIWA-Ar 16-25 Magnesium Hydroxide (Magnesium Hydroxide (Mom) Oral Liqd Udc) 30 ml PO Q4H PRN PRN Reason: Constipation Morphine Sulfate (Morphine 2 Mg/1 Ml Inj) 2 mg IV Q4H PRN PRN Reason: Pain, Moderate (4-6) Morphine Sulfate (Morphine 4 Mg/1 Ml Inj) 4 mg IV Q4H PRN PRN Reason: Pain , Severe (7-10) Ondansetron HCl (Ondansetron 4 Mg/2 Ml Inj) 4 mg IV Q8H PRN PRN Reason: Nausea And Vomiting Sodium Chloride (Sodium Chloride 0.9% 10 Ml Flush Syringe) 10 ml IV BID YOLANDA Last Admin: 03/12/22 09:00 Dose: Not Given Sodium Chloride (Sodium Chloride 0.9% 10 Ml Flush Syringe) 10 ml IV PRN PRN PRN Reason: LINE FLUSH Reviewed/updated patient's home and current medications Review of Systems - Review of Systems All systems: negative (per HPI) Exam - Constitutional Vital Signs: Temp Pulse Resp BP Pulse Ox 98.8 F 109 H 18 106/67 98 03/12/22 03:39 03/12/22 03:39 03/12/22 03:39 03/12/22 03:39 03/12/22 07:03 General appearance: no acute distress - EENT ENT: other (dry mucous membranes) - Respiratory Respiratory effort: normal Respiratory: bilateral: CTA - Cardiovascular Rhythm: regular Heart Sounds: Present: S1 & S2 Extremities: Full ROM - Gastrointestinal General gastrointestinal: Present: soft, non-tender, non-distended - Psychiatric Psychiatric: appropriate mood/affect - Labs CBC & Chem 7: 03/11/22 22:57 03/12/22 11:14 Lab Results: Laboratory Results - last 24 hr 03/11/22 03/11/22 03/11/22 00:00 00:00 21:58 WBC RBC Hgb Hct MCV MCH MCHC RDW Plt Count Add Manual Diff Total Counted Seg Neuts % (Manual) Band Neutrophils % Lymphocytes % (Manual) Reactive Lymphs % (Man) Monocytes % (Manual) Eosinophils % (Manual) Basophils % (Manual) Metamyelocytes % Myelocytes % Promyelocytes % Blast Cells % Nucleated RBC % Seg Neutrophils # Man Band Neutrophils # Lymphocytes # (Manual) Abs React Lymphs (Man) Monocytes # (Manual) Eosinophils # (Manual) Basophils # (Manual) Metamyelocytes # Myelocytes # Promyelocytes # Blast Cells # WBC Morphology Hypersegmented Neuts Hyposegmented Neuts Hypogranular Neuts Smudge Cells Toxic Granulation Toxic Vacuolation Dohle Bodies Pelger-Huet Anomaly Jen Rods Platelet Estimate Clumped Platelets Plt Clumps, EDTA Large Platelets Giant Platelets Platelet Satelliting Plt Morphology Comment RBC Morphology Dimorphic RBCs Polychromasia Hypochromasia Poikilocytosis Anisocytosis Microcytosis Macrocytosis Spherocytes Pappenheimer Bodies Sickle Cells Target Cells Tear Drop Cells Ovalocytes Helmet Cells Carreno-Cent[place] Bodies [place] Rings Anya Cells Bite Cells Crenated Cell Elliptocytes Acanthocytes (Spur) Rouleaux Hemoglobin C Crystals Schistocytes Malaria parasites Shahram Bodies Hem Pathologist Commnt PT INR Sodium Potassium Chloride Carbon Dioxide Anion Gap BUN Creatinine Estimated GFR BUN/Creatinine Ratio Glucose Lactic Acid Calcium Phosphorus Magnesium Total Bilirubin AST ALT Alkaline Phosphatase Total Creatine Kinase Troponin T Total Protein Albumin Albumin/Globulin Ratio TSH Urine Color Urine Turbidity Urine pH Ur Specific [place] Urine Protein Urine Glucose (UA) Urine Ketones Urine Blood Urine Nitrite Urine Bilirubin Urine Urobilinogen Ur Leukocyte Esterase Urine WBC (Auto) Urine RBC (Auto) U Epithel Cells (Auto) Hyaline Casts Urine Mucus Salicylates < 0.3 L Acetaminophen 5.0 L Plasma/Serum Alcohol Coronavirus (PCR) Influenza A (RT-PCR) Negative Influenza B (RT-PCR) Negative 03/11/22 03/11/22 03/11/22 22:43 22:57 22:57 WBC 6.0 RBC 3.13 L Hgb 9.0 L Hct 27.4 L MCV 88 MCH 29 MCHC 33 RDW 29.1 H Plt Count 96 L Add Manual Diff Complete Total Counted 100 Seg Neuts % (Manual) 84.0 H Band Neutrophils % 0 Lymphocytes % (Manual) 12.0 L Reactive Lymphs % (Man) 0 Monocytes % (Manual) 4.0 Eosinophils % (Manual) 0 Basophils % (Manual) 0 Metamyelocytes % 0 Myelocytes % 0 Promyelocytes % 0 Blast Cells % 0 Nucleated RBC % Not Reportable Seg Neutrophils # Man 5.0 Band Neutrophils # 0.0 Lymphocytes # (Manual) 0.7 L Abs React Lymphs (Man) 0.0 Monocytes # (Manual) 0.2 Eosinophils # (Manual) 0.0 Basophils # (Manual) 0.0 Metamyelocytes # 0.0 Myelocytes # 0.0 Promyelocytes # 0.0 Blast Cells # 0.0 WBC Morphology Not Reportable Hypersegmented Neuts Not Reportable Hyposegmented Neuts Not Reportable Hypogranular Neuts Not Reportable Smudge Cells Not Reportable Toxic Granulation Not Reportable Toxic Vacuolation Not Reportable Dohle Bodies Not Reportable Pelger-Huet Anomaly Not Reportable Jen Rods Not Reportable Platelet Estimate Consistent w auto Clumped Platelets Not Reportable Plt Clumps, EDTA Not Reportable Large Platelets Not Reportable Giant Platelets Not Reportable Platelet Satelliting Not Reportable Plt Morphology Comment Not Reportable RBC Morphology Not Reportable Dimorphic RBCs Not Reportable Polychromasia Not Reportable Hypochromasia 2+ Poikilocytosis 1+ Anisocytosis Not Reportable Microcytosis 1+ Macrocytosis Not Reportable Spherocytes Not Reportable Pappenheimer Bodies Not Reportable Sickle Cells Not Reportable Target Cells 1+ Tear Drop Cells Not Reportable Ovalocytes Few Helmet Cells Not Reportable Carreno-[place] Bodies Not Reportable [place] Rings Not Reportable Anthony Cells Not Reportable Bite Cells Not Reportable Crenated Cell Not Reportable Elliptocytes Few Acanthocytes (Spur) Not Reportable Rouleaux Not Reportable Hemoglobin C Crystals Not Reportable Schistocytes Not Reportable Malaria parasites Not Reportable Shahram Bodies Not Reportable Hem Pathologist Commnt No PT 15.7 H INR 1.12 Sodium Potassium Chloride Carbon Dioxide Anion Gap BUN Creatinine Estimated GFR BUN/Creatinine Ratio Glucose Lactic Acid Calcium Phosphorus Magnesium Total Bilirubin AST ALT Alkaline Phosphatase Total Creatine Kinase Troponin T Total Protein Albumin Albumin/Globulin Ratio TSH Urine Color Linda Urine Turbidity Clear Urine pH 6.0 Ur Specific [place] 1.020 Urine Protein 30 mg/dl Urine Glucose (UA) 50 Urine Ketones Tr Urine Blood Neg Urine Nitrite Neg Urine Bilirubin Neg Urine Urobilinogen < 2.0 Ur Leukocyte Esterase Neg Urine WBC (Auto) 3.0 Urine RBC (Auto) < 1.0 U Epithel Cells (Auto) < 1.0 Hyaline Casts 2 Urine Mucus Few Salicylates Acetaminophen Plasma/Serum Alcohol Coronavirus (PCR) Influenza A (RT-PCR) Influenza B (RT-PCR) 03/11/22 03/11/22 03/11/22 22:57 22:57 22:57 WBC RBC Hgb Hct MCV MCH MCHC RDW Plt Count Add Manual Diff Total Counted Seg Neuts % (Manual) Band Neutrophils % Lymphocytes % (Manual) Reactive Lymphs % (Man) Monocytes % (Manual) Eosinophils % (Manual) Basophils % (Manual) Metamyelocytes % Myelocytes % Promyelocytes % Blast Cells % Nucleated RBC % Seg Neutrophils # Man Band Neutrophils # Lymphocytes # (Manual) Abs React Lymphs (Man) Monocytes # (Manual) Eosinophils # (Manual) Basophils # (Manual) Metamyelocytes # Myelocytes # Promyelocytes # Blast Cells # WBC Morphology Hypersegmented Neuts Hyposegmented Neuts Hypogranular Neuts Smudge Cells Toxic Granulation Toxic Vacuolation Dohle Bodies Pelger-Huet Anomaly Jen Rods Platelet Estimate Clumped Platelets Plt Clumps, EDTA Large Platelets Giant Platelets Platelet Satelliting Plt Morphology Comment RBC Morphology Dimorphic RBCs Polychromasia Hypochromasia Poikilocytosis Anisocytosis Microcytosis Macrocytosis Spherocytes Pappenheimer Bodies Sickle Cells Target Cells Tear Drop Cells Ovalocytes Helmet Cells Carreno-Cent[place] Bodies [place] Rings Anthony Cells Bite Cells Crenated Cell Elliptocytes Acanthocytes (Spur) Rouleaux Hemoglobin C Crystals Schistocytes Malaria parasites Shahram Bodies Hem Pathologist Commnt PT INR Sodium 141 Potassium 2.7 L* Chloride 95.0 L Carbon Dioxide 24 Anion Gap 25 BUN 2 L Creatinine 0.9 Estimated GFR > 60 BUN/Creatinine Ratio 2 Glucose 107 H Lactic Acid Calcium 7.5 L Phosphorus 2.70 Magnesium 0.70 L* Total Bilirubin 1.50 H AST 91 H ALT 44 Alkaline Phosphatase 120 Total Creatine Kinase 70 Troponin T < 0.010 Total Protein 8.2 Albumin 3.1 L Albumin/Globulin Ratio 0.6 TSH 4.900 H Urine Color Urine Turbidity Urine pH Ur Specific [place] Urine Protein Urine Glucose (UA) Urine Ketones Urine Blood Urine Nitrite Urine Bilirubin Urine Urobilinogen Ur Leukocyte Esterase Urine WBC (Auto) Urine RBC (Auto) U Epithel Cells (Auto) Hyaline Casts Urine Mucus Salicylates Acetaminophen Plasma/Serum Alcohol < 0.01 Coronavirus (PCR) Influenza A (RT-PCR) Influenza B (RT-PCR) 03/11/22 03/12/22 03/12/22 22:57 08:29 09:25 WBC RBC Hgb Hct MCV MCH MCHC RDW Plt Count Add Manual Diff Total Counted Seg Neuts % (Manual) Band Neutrophils % Lymphocytes % (Manual) Reactive Lymphs % (Man) Monocytes % (Manual) Eosinophils % (Manual) Basophils % (Manual) Metamyelocytes % Myelocytes % Promyelocytes % Blast Cells % Nucleated RBC % Seg Neutrophils # Man Band Neutrophils # Lymphocytes # (Manual) Abs React Lymphs (Man) Monocytes # (Manual) Eosinophils # (Manual) Basophils # (Manual) Metamyelocytes # Myelocytes # Promyelocytes # Blast Cells # WBC Morphology Hypersegmented Neuts Hyposegmented Neuts Hypogranular Neuts Smudge Cells Toxic Granulation Toxic Vacuolation Dohle Bodies Pelger-Huet Anomaly Jen Rods Platelet Estimate Clumped Platelets Plt Clumps, EDTA Large Platelets Giant Platelets Platelet Satelliting Plt Morphology Comment RBC Morphology Dimorphic RBCs Polychromasia Hypochromasia Poikilocytosis Anisocytosis Microcytosis Macrocytosis Spherocytes Pappenheimer Bodies Sickle Cells Target Cells Tear Drop Cells Ovalocytes Helmet Cells Carreno-Centenary Bodies [place] Rings Anthony Cells Bite Cells Crenated Cell Elliptocytes Acanthocytes (Spur) Rouleaux Hemoglobin C Crystals Schistocytes Malaria parasites Shahram Bodies Hem Pathologist Commnt PT INR Sodium Potassium Chloride Carbon Dioxide Anion Gap BUN Creatinine Estimated GFR BUN/Creatinine Ratio Glucose Lactic Acid 7.10 H* 1.70 Calcium Phosphorus Magnesium Total Bilirubin AST ALT Alkaline Phosphatase Total Creatine Kinase Troponin T Total Protein Albumin Albumin/Globulin Ratio TSH Urine Color Urine Turbidity Urine pH Ur Specific [place] Urine Protein Urine Glucose (UA) Urine Ketones Urine Blood Urine Nitrite Urine Bilirubin Urine Urobilinogen Ur Leukocyte Esterase Urine WBC (Auto) Urine RBC (Auto) U Epithel Cells (Auto) Hyaline Casts Urine Mucus Salicylates Acetaminophen Plasma/Serum Alcohol Coronavirus (PCR) Negative Influenza A (RT-PCR) Influenza B (RT-PCR) 03/12/22 11:14 WBC RBC Hgb Hct MCV MCH MCHC RDW Plt Count Add Manual Diff Total Counted Seg Neuts % (Manual) Band Neutrophils % Lymphocytes % (Manual) Reactive Lymphs % (Man) Monocytes % (Manual) Eosinophils % (Manual) Basophils % (Manual) Metamyelocytes % Myelocytes % Promyelocytes % Blast Cells % Nucleated RBC % Seg Neutrophils # Man Band Neutrophils # Lymphocytes # (Manual) Abs React Lymphs (Man) Monocytes # (Manual) Eosinophils # (Manual) Basophils # (Manual) Metamyelocytes # Myelocytes # Promyelocytes # Blast Cells # WBC Morphology Hypersegmented Neuts Hyposegmented Neuts Hypogranular Neuts Smudge Cells Toxic Granulation Toxic Vacuolation Dohle Bodies Pelger-Huet Anomaly Jen Rods Platelet Estimate Clumped Platelets Plt Clumps, EDTA Large Platelets Giant Platelets Platelet Satelliting Plt Morphology Comment RBC Morphology Dimorphic RBCs Polychromasia Hypochromasia Poikilocytosis Anisocytosis Microcytosis Macrocytosis Spherocytes Pappenheimer Bodies Sickle Cells Target Cells Tear Drop Cells Ovalocytes Helmet Cells Carreno-Centenary Bodies [place] Rings Anya Cells Bite Cells Crenated Cell Elliptocytes Acanthocytes (Spur) Rouleaux Hemoglobin C Crystals Schistocytes Malaria parasites Shahram Bodies Hem Pathologist Commnt PT INR Sodium 139 Potassium 3.0 L Chloride 101.6 Carbon Dioxide 26 Anion Gap 14 BUN 3 L Creatinine 0.7 L Estimated GFR > 60 BUN/Creatinine Ratio 4 Glucose 89 Lactic Acid Calcium 7.6 L Phosphorus Magnesium Total Bilirubin AST ALT Alkaline Phosphatase Total Creatine Kinase Troponin T Total Protein Albumin Albumin/Globulin Ratio TSH Urine Color Urine Turbidity Urine pH Ur Specific [place] Urine Protein Urine Glucose (UA) Urine Ketones Urine Blood Urine Nitrite Urine Bilirubin Urine Urobilinogen Ur Leukocyte Esterase Urine WBC (Auto) Urine RBC (Auto) U Epithel Cells (Auto) Hyaline Casts Urine Mucus Salicylates Acetaminophen Plasma/Serum Alcohol Coronavirus (PCR) Influenza A (RT-PCR) Influenza B (RT-PCR) Assessment and Plan 1. Abnormal liver enzymes - suspect due to alcoholic liver disease. can check viral hep serologies to r/o concomitant source. trend liver enzymes otherwise, RUQ US to r/o biliary dilatation, but supportive otherwise from gi stand point. 2. Anemia - ? alcohol related, although states he had recent colonoscopy with polyp/?? cancer - no records available and he is unable to provide further information regarding this. instructed to f/u with outpatient appts as scheduled from recent hospitalization and f/u with GI who did his colonoscopy.
[2022-03-12] MEDS: NACL 0.9%/KCL 40 MEQ 40 MEQ/1,000 ML BAG IV SCH (22:11)
[2022-03-13 05:27] LABS: Hematocrit 24.1 % (35.5-45.6); Hemoglobin 7.7 gm/dl (11.8-15.2); Mean Corpuscular HGB Conc 32 % (32-34); Mean Corpuscular Volume 89 fl (84-94)
[2022-03-13 05:32] LABS: Platelet Count 90 K/mm3 (140-440); Red Cell Distribution Width 28.2 % (13.2-15.2)
[2022-03-13] MEDS: HEPARIN 5,000 UNIT/1 ML VIAL SUB-Q SCH ×3 (05:35→21:13)
[2022-03-13 05:59] LABS: Blood Urea Nitrogen 2 mg/dL (9-20); Calcium 7.3 mg/dL (8.4-10.2); Hemolysis Index 0
[2022-03-13 06:06] LABS: BUN/Creatinine Ratio 3
[2022-03-13 07:20] LABS: Anisocytosis 1+; Basophils % (Manual) 0 % (0.0-1.8); Platelet Estimate Consistent w Auto; Total Cells Counted 100
[2022-03-13] MEDS ORDERED: POTASSIUM CHLORIDE ER 20 MEQ TAB PO SCH (07:30)
[2022-03-13] MEDS: NACL 0.9%/KCL 40 MEQ 40 MEQ/1,000 ML BAG IV SCH ×2 (09:48→21:15)
--- NOTE | 2022-03-13 10:01 | Gastroenterology Progress Note ---
Assessment and Plan 1. Abnormal liver enzymes - suspect due to alcoholic liver disease. trend levels, f/u with primary gi as outpatient for further work-up/US as needed. he wishes to go home today. will defer to primary 2. Anemia - ? alcohol related, no overt gi bleeding; states he had recent colonoscopy with polyp/?? cancer - no records available and he is unable to provide further information regarding this. again instructed to f/u with primary gi and with outpatient appts as scheduled from recent hospitalization at [facility]. will sign off, please call as needed. Subjective Date of service: 03/13/22 Principal diagnosis: abnormal liver enzymes Interval history: no events overnight, states he wants to go home. denies abd pain, n/v, gi bleeding, etc. Objective - Constitutional Vitals: Temp Pulse Resp BP Pulse Ox 99.6 F 125 H 20 144/96 98 03/13/22 06:06 03/13/22 06:06 03/13/22 06:06 03/13/22 06:06 03/13/22 07:50 General appearance: no acute distress - Respiratory Respiratory effort: normal Respiratory: bilateral: CTA - Cardiovascular Rhythm: regular - Gastrointestinal General gastrointestinal: Present: soft, non-tender - Labs CBC & Chem 7: 03/13/22 04:39 03/13/22 04:39 Labs: Laboratory Results - last 24 hr 03/12/22 03/12/22 03/13/22 09:25 11:14 04:39 WBC 7.1 RBC 2.70 L Hgb 7.7 L Hct 24.1 L MCV 89 MCH 29 MCHC 32 RDW 28.2 H Plt Count 90 L Add Manual Diff Complete Total Counted 100 Seg Neuts % (Manual) 63.0 Band Neutrophils % 0 Lymphocytes % (Manual) 32.0 Reactive Lymphs % (Man) 0 Monocytes % (Manual) 2.0 Eosinophils % (Manual) 3.0 Basophils % (Manual) 0 Metamyelocytes % 0 Myelocytes % 0 Promyelocytes % 0 Blast Cells % 0 Nucleated RBC % Not Reportable Seg Neutrophils # Man 4.5 Band Neutrophils # 0.0 Lymphocytes # (Manual) 2.3 Abs React Lymphs (Man) 0.0 Monocytes # (Manual) 0.1 Eosinophils # (Manual) 0.2 Basophils # (Manual) 0.0 Metamyelocytes # 0.0 Myelocytes # 0.0 Promyelocytes # 0.0 Blast Cells # 0.0 WBC Morphology Not Reportable Hypersegmented Neuts Not Reportable Hyposegmented Neuts Not Reportable Hypogranular Neuts Not Reportable Smudge Cells Not Reportable Toxic Granulation Not Reportable Toxic Vacuolation Not Reportable Dohle Bodies Not Reportable Pelger-Huet Anomaly Not Reportable Jen Rods Not Reportable Platelet Estimate Consistent w auto Clumped Platelets Not Reportable Plt Clumps, EDTA Not Reportable Large Platelets Not Reportable Giant Platelets Not Reportable Platelet Satelliting Not Reportable Plt Morphology Comment Not Reportable RBC Morphology Not Reportable Dimorphic RBCs Not Reportable Polychromasia Not Reportable Hypochromasia Not Reportable Poikilocytosis Not Reportable Anisocytosis 1+ Microcytosis Not Reportable Macrocytosis Not Reportable Spherocytes Not Reportable Pappenheimer Bodies Not Reportable Sickle Cells Not Reportable Target Cells Not Reportable Tear Drop Cells Not Reportable Ovalocytes Not Reportable Helmet Cells Not Reportable Carren[place] Bodies Not Reportable Grawn Rings Not Reportable Anya Cells Not Reportable Bite Cells Not Reportable Crenated Cell Not Reportable Elliptocytes Not Reportable Acanthocytes (Spur) Not Reportable Rouleaux Not Reportable Hemoglobin C Crystals Not Reportable Schistocytes Not Reportable Malaria parasites Not Reportable Shahram Bodies Not Reportable Hem Pathologist Commnt No Sodium 139 Potassium 3.0 L Chloride 101.6 Carbon Dioxide 26 Anion Gap 14 BUN 3 L Creatinine 0.7 L Estimated GFR > 60 BUN/Creatinine Ratio 4 Glucose 89 Calcium 7.6 L Coronavirus (PCR) Negative 03/13/22 04:39 WBC RBC Hgb Hct MCV MCH MCHC RDW Plt Count Add Manual Diff Total Counted Seg Neuts % (Manual) Band Neutrophils % Lymphocytes % (Manual) Reactive Lymphs % (Man) Monocytes % (Manual) Eosinophils % (Manual) Basophils % (Manual) Metamyelocytes % Myelocytes % Promyelocytes % Blast Cells % Nucleated RBC % Seg Neutrophils # Man Band Neutrophils # Lymphocytes # (Manual) Abs React Lymphs (Man) Monocytes # (Manual) Eosinophils # (Manual) Basophils # (Manual) Metamyelocytes # Myelocytes # Promyelocytes # Blast Cells # WBC Morphology Hypersegmented Neuts Hyposegmented Neuts Hypogranular Neuts Smudge Cells Toxic Granulation Toxic Vacuolation Dohle Bodies Pelger-Huet Anomaly Jen Rods Platelet Estimate Clumped Platelets Plt Clumps, EDTA Large Platelets Giant Platelets Platelet Satelliting Plt Morphology Comment RBC Morphology Dimorphic RBCs Polychromasia Hypochromasia Poikilocytosis Anisocytosis Microcytosis Macrocytosis Spherocytes Pappenheimer Bodies Sickle Cells Target Cells Tear Drop Cells Ovalocytes Helmet Cells Carren[place] Bodies [place] Rings Anya Cells Bite Cells Crenated Cell Elliptocytes Acanthocytes (Spur) Rouleaux Hemoglobin C Crystals Schistocytes Malaria parasites Shahram Bodies Hem Pathologist Commnt Sodium 137 Potassium 2.4 L* Chloride 103.3 Carbon Dioxide 23 Anion Gap 13 BUN 2 L Creatinine 0.6 L Estimated GFR > 60 BUN/Creatinine Ratio 3 Glucose 76 Calcium 7.3 L Coronavirus (PCR)
[2022-03-13] MEDS ORDERED: POTASSIUM CHLORIDE ER 20 MEQ TAB PO ONE ×4 (12:30→20:00)
--- NOTE | 2022-03-13 21:28 | Electrocardiograph Report ---
[facility] Test Date: 2022-03-11 Test Time: 21:50:49 Pat Name: ANNIKA BLACK Department: Room: A377 Gender: M Professional [employer]: JOHN : 1985 Requested By: MOMO WRIGHT Order Number: [id number] Reading MD: Jorge Banegas Measurements Intervals [place] Rate: 79 P: ME: QRS: 34 QRSD: 89 T: 256 QT: 278 QTc: 319 Interpretive Statements Sinus rhythm with frequent PVCs Nonspecific T wave changes No previous ECG available for comparison Electronically Signed On 03-13-2022 21:28:20 EDT by Jorge Banegas
[2022-03-14] MEDS: LORazepam 2 MG/ML VIAL IV PRN ×2 (04:07→12:23)
[2022-03-14] MEDS: HEPARIN 5,000 UNIT/1 ML VIAL SUB-Q SCH ×2 (05:15→13:14)
[2022-03-14 05:30] LABS: Hematocrit 27.7 % (35.5-45.6); Hemoglobin 8.8 gm/dl (11.8-15.2); Mean Corpuscular HGB Conc 32 % (32-34); Mean Corpuscular Volume 91 fl (84-94); Platelet Count 123 K/mm3 (140-440); Red Blood Count 3.05 M/mm3 (3.65-5.03)
[2022-03-14 05:37] LABS: BUN/Creatinine Ratio 3; Blood Urea Nitrogen 2 mg/dL (9-20); Calcium 8.1 mg/dL (8.4-10.2); Hemolysis Index 0
[2022-03-14 05:55] LABS: Red Cell Distribution Width 29.1 % (13.2-15.2)
[2022-03-14] MEDS ORDERED: POTASSIUM CHLORIDE ER 20 MEQ TAB PO ONE (06:00)
[2022-03-14 08:23] LABS: Basophils % (Manual) 0 % (0.0-1.8); Eosinophils % (Manual) 0 % (0.0-4.3); Myelocytes # (Manual) 0.2 K/mm3; Total Cells Counted 100
[2022-03-14 08:26] LABS: Anisocytosis 3+; Platelet Estimate Consistent w Auto
--- NOTE | 2022-03-14 09:54 | Progress Note ---
Assessment and Plan Assessment and plan: 36-year-old -[place] male with known history of hypertension, hyperlipidemia and history of alcohol abuse presenting to the emergency room complaining of generalized body aches/pain, chills, nausea and vomiting. Patient reported he was recently diagnosed with colon cancer but has not been placed on any chemotherapy or radiation therapy. He admitted that he was an alcoholic in the past but has been trying to cut back on his alcohol intake. Last alcohol intake was few days ago. Work-up in the emergency room revealed labs significant for potassium of 2.7, lactic acid of 7.1, magnesium of 0.7, alcohol level of less than 0.01 hemoglobin of 9 and hematocrit of 27.4. AST of 91. Total bilirubin of 1.5. ETOH abuse hypokalemia lactic acidosis tobacco abuse 03/12/22. Lactic acidosis has resolved. Continue IVF hydration and potassium repletion. Anticipate d/c in am 03/13/2022. Patient still with significant hypokalemia. Replete potassium. Continue IV fluid hydration and monitor closely 03/14/2022. Abnormal liver enzymes are likely related to alcoholic liver disease. We will recheck LFTs. Patient still with hypokalemia and reports having some diarrhea yesterday. Replete potassium and follow-up BMP and magnesium level. Continue CIWA protocol History Interval history: No new issues Hospitalist Physical - Constitutional Vitals: Temp Pulse Resp BP Pulse Ox 97.9 F 95 H 18 118/83 99 03/14/22 04:37 03/14/22 04:37 03/14/22 07:00 03/14/22 04:37 03/14/22 07:00 General appearance: Present: no acute distress, well-nourished - EENT Eyes: Present: PERRL, EOM intact ENT: hearing intact, clear oral mucosa, dentition normal - Neck Neck: Present: supple, normal ROM - Respiratory Respiratory effort: normal Respiratory: bilateral: CTA - Cardiovascular Rhythm: regular Heart Sounds: Present: S1 & S2. Absent: gallop, rub - Extremities Extremities: no ischemia, No edema, Full ROM - Abdominal General gastrointestinal: soft, non-tender, non-distended, normal bowel sounds - Integumentary Integumentary: Present: clear, warm, dry - Neurologic Neurologic: CNII-XII intact, moves all extremities HEART Score - HEART Score Troponin: Troponin T < 0.010 ng/mL (0.00-0.029) 03/11/22 22:57 Results - Labs CBC & Chem 7: 03/14/22 04:30 03/14/22 04:30 Labs: Laboratory Last Values WBC 7.9 K/mm3 (4.5-11.0) 03/14/22 04:30 RBC 3.05 M/mm3 (3.65-5.03) L 03/14/22 04:30 Hgb 8.8 gm/dl (11.8-15.2) L 03/14/22 04:30 Hct 27.7 % (35.5-45.6) L 03/14/22 04:30 MCV 91 fl (84-94) 03/14/22 04:30 MCH 29 pg (28-32) 03/14/22 04:30 MCHC 32 % (32-34) 03/14/22 04:30 RDW 29.1 % (13.2-15.2) H 03/14/22 04:30 Plt Count 123 K/mm3 (140-440) L 03/14/22 04:30 Add Manual Diff Complete 03/14/22 04:30 Total Counted 100 03/14/22 04:30 Seg Neuts % (Manual) 59.0 % (40.0-70.0) 03/14/22 04:30 Band Neutrophils % 0 % 03/14/22 04:30 Lymphocytes % (Manual) 37.0 % (13.4-35.0) H 03/14/22 04:30 Reactive Lymphs % (Man) 0 % 03/14/22 04:30 Monocytes % (Manual) 1.0 % (0.0-7.3) 03/14/22 04:30 Eosinophils % (Manual) 0 % (0.0-4.3) 03/14/22 04:30 Basophils % (Manual) 0 % (0.0-1.8) 03/14/22 04:30 Metamyelocytes % 0 % 03/14/22 04:30 Myelocytes % 3.0 % 03/14/22 04:30 Promyelocytes % 0 % 03/14/22 04:30 Blast Cells % 0 % 03/14/22 04:30 Nucleated RBC % 5.0 % (0.0-0.9) H 03/14/22 04:30 Seg Neutrophils # Man 4.7 K/mm3 (1.8-7.7) 03/14/22 04:30 Band Neutrophils # 0.0 K/mm3 03/14/22 04:30 Lymphocytes # (Manual) 2.9 K/mm3 (1.2-5.4) 03/14/22 04:30 Abs React Lymphs (Man) 0.0 K/mm3 03/14/22 04:30 Monocytes # (Manual) 0.1 K/mm3 (0.0-0.8) 03/14/22 04:30 Eosinophils # (Manual) 0.0 K/mm3 (0.0-0.4) 03/14/22 04:30 Basophils # (Manual) 0.0 K/mm3 (0.0-0.1) 03/14/22 04:30 Metamyelocytes # 0.0 K/mm3 03/14/22 04:30 Myelocytes # 0.2 K/mm3 03/14/22 04:30 Promyelocytes # 0.0 K/mm3 03/14/22 04:30 Blast Cells # 0.0 K/mm3 03/14/22 04:30 WBC Morphology Not Reportable 03/14/22 04:30 Hypersegmented Neuts Not Reportable 03/14/22 04:30 Hyposegmented Neuts Not Reportable 03/14/22 04:30 Hypogranular Neuts Not Reportable 03/14/22 04:30 Smudge Cells Not Reportable 03/14/22 04:30 Toxic Granulation Not Reportable 03/14/22 04:30 Toxic Vacuolation Not Reportable 03/14/22 04:30 Dohle Bodies Not Reportable 03/14/22 04:30 Pelger-Huet Anomaly Not Reportable 03/14/22 04:30 Jen Rods Not Reportable 03/14/22 04:30 Platelet Estimate Consistent w auto 03/14/22 04:30 Clumped Platelets Not Reportable 03/14/22 04:30 Plt Clumps, EDTA Not Reportable 03/14/22 04:30 Large Platelets Not Reportable 03/14/22 04:30 Giant Platelets Not Reportable 03/14/22 04:30 Platelet Satelliting Not Reportable 03/14/22 04:30 Plt Morphology Comment Not Reportable 03/14/22 04:30 RBC Morphology Not Reportable 03/14/22 04:30 Dimorphic RBCs Not Reportable 03/14/22 04:30 Polychromasia Not Reportable 03/14/22 04:30 Hypochromasia Not Reportable 03/14/22 04:30 Poikilocytosis Not Reportable 03/14/22 04:30 Anisocytosis 3+ 03/14/22 04:30 Microcytosis Not Reportable 03/14/22 04:30 Macrocytosis Not Reportable 03/14/22 04:30 Spherocytes Not Reportable 03/14/22 04:30 Pappenheimer Bodies Not Reportable 03/14/22 04:30 Sickle Cells Not Reportable 03/14/22 04:30 Target Cells Not Reportable 03/14/22 04:30 Tear Drop Cells Not Reportable 03/14/22 04:30 Ovalocytes Not Reportable 03/14/22 04:30 Helmet Cells Not Reportable 03/14/22 04:30 [employer] Bodies Not Reportable 03/14/22 04:30 Evangeline Rings Not Reportable 03/14/22 04:30 Anya Cells Not Reportable 03/14/22 04:30 Bite Cells Not Reportable 03/14/22 04:30 Crenated Cell Not Reportable 03/14/22 04:30 Elliptocytes Not Reportable 03/14/22 04:30 Acanthocytes (Spur) Not Reportable 03/14/22 04:30 Rouleaux Not Reportable 03/14/22 04:30 Hemoglobin C Crystals Not Reportable 03/14/22 04:30 Schistocytes Not Reportable 03/14/22 04:30 Malaria parasites Not Reportable 03/14/22 04:30 Shahram Bodies Not Reportable 03/14/22 04:30 Hem Pathologist Commnt No 03/14/22 04:30 PT 15.7 Sec. (12.2-14.9) H 03/11/22 22:57 INR 1.12 (0.87-1.13) 03/11/22 22:57 Sodium 138 mmol/L (137-145) 03/14/22 04:30 Potassium 3.0 mmol/L (3.6-5.0) L 03/14/22 04:30 Chloride 104.0 mmol/L (98-107) 03/14/22 04:30 Carbon Dioxide 18 mmol/L (22-30) L 03/14/22 04:30 Anion Gap 19 mmol/L 03/14/22 04:30 BUN 2 mg/dL (9-20) L 03/14/22 04:30 Creatinine 0.8 mg/dL (0.8-1.3) 03/14/22 04:30 Estimated GFR > 60 ml/min 03/14/22 04:30 BUN/Creatinine Ratio 3 % 03/14/22 04:30 Glucose 86 mg/dL (75-100) 03/14/22 04:30 Lactic Acid 1.70 mmol/L (0.7-2.0) 03/12/22 08:29 Calcium 8.1 mg/dL (8.4-10.2) L 03/14/22 04:30 Phosphorus 2.70 mg/dL (2.5-4.5) 03/11/22 22:57 Magnesium 0.70 mg/dL (1.7-2.3) L* 03/11/22 22:57 Total Bilirubin 1.50 mg/dL (0.1-1.2) H 03/11/22 22:57 AST 91 units/L (5-40) H 03/11/22 22:57 ALT 44 units/L (7-56) 03/11/22 22:57 Alkaline Phosphatase 120 units/L (35-129) 03/11/22 22:57 Total Creatine Kinase 70 units/L (55-170) 03/11/22 22:57 Troponin T < 0.010 ng/mL (0.00-0.029) 03/11/22 22:57 Total Protein 8.2 g/dL (6.3-8.2) 03/11/22 22:57 Albumin 3.1 g/dL (3.9-5) L 03/11/22 22:57 Albumin/Globulin Ratio 0.6 % 03/11/22 22:57 TSH 4.900 mlU/mL (0.270-4.200) H 03/11/22 22:57 Urine Color Linda (Yellow) 03/11/22 22:43 Urine Turbidity Clear (Clear) 03/11/22 22:43 Urine pH 6.0 (5.0-7.0) 03/11/22 22:43 Ur Specific Patterson 1.020 (1.003-1.030) 03/11/22 22:43 Urine Protein 30 mg/dl mg/dL (Negative) 03/11/22 22:43 Urine Glucose (UA) 50 mg/dL (Negative) 03/11/22 22:43 Urine Ketones Tr mg/dL (Negative) 03/11/22 22:43 Urine Blood Neg (Negative) 03/11/22 22:43 Urine Nitrite Neg (Negative) 03/11/22 22:43 Urine Bilirubin Neg (Negative) 03/11/22 22:43 Urine Urobilinogen < 2.0 mg/dL (<2.0) 03/11/22 22:43 Ur Leukocyte Esterase Neg (Negative) 03/11/22 22:43 Urine WBC (Auto) 3.0 /HPF (0.0-6.0) 03/11/22 22:43 Urine RBC (Auto) < 1.0 /HPF (0.0-6.0) 03/11/22 22:43 U Epithel Cells (Auto) < 1.0 /HPF (0-13.0) 03/11/22 22:43 Hyaline Casts 2 /LPF 03/11/22 22:43 Urine Mucus Few /HPF 03/11/22 22:43 Salicylates < 0.3 mg/dL (2.8-20.0) L 03/11/22 00:00 Acetaminophen 5.0 ug/mL (10.0-30.0) L 03/11/22 00:00 Plasma/Serum Alcohol < 0.01 % (0-0.07) 03/11/22 22:57 Coronavirus (PCR) Negative (Negative) 03/12/22 09:25 Influenza A (RT-PCR) Negative (Negative) 03/11/22 21:58 Influenza B (RT-PCR) Negative (Negative) 03/11/22 21:58 Microbiology: Microbiology 03/11/22 22:57 Peripheral/Venous Blood Culture - Preliminary NO GROWTH AFTER 48 HOURS 03/11/22 22:51 Peripheral/Venous Blood Culture - Preliminary NO GROWTH AFTER 48 HOURS Palmer/IV: Voiding Method Toilet Active Medications - Current Medications Current Medications: Generic Name Dose Route Start Last Admin Trade Name Freq PRN Reason Stop Dose Admin Chlordiazepoxide HCl 50 mg 03/11/22 21:58 Chlordiazepoxide 25 Mg Cap PO Q1H PRN [facility]WA-Ar 8-15 Chlordiazepoxide HCl 100 mg 03/11/22 21:58 Chlordiazepoxide 25 Mg Cap PO Q1H PRN [facility]WA-Ar 16-25 Heparin Sodium (Porcine) 5,000 unit 03/12/22 06:00 03/14/22 05:15 Heparin 5,000 Unit/1 Ml Vial SUB-Q 5,000 unit Q8HR YOLANDA Administration Potassium Chloride/Sodium Chloride 40 meq in 1,000 mls @ 75 mls/hr 03/12/22 11:00 03/13/22 21:15 Ns/Kcl 40meq IV 75 mls/hr DIRECT YOLANDA Administration Ibuprofen 600 mg 03/12/22 01:08 03/13/22 12:27 Ibuprofen 600 Mg Tab PO 600 mg Q6H PRN Administration Pain, Mild (1-3) Lorazepam 2 mg 03/11/22 21:58 03/14/22 04:07 Lorazepam 2 Mg/Ml Vial IV 2 mg Q1H PRN Administration [facility]-Ar 8-15 Lorazepam 4 mg 03/11/22 21:58 Lorazepam 2 Mg/Ml Vial IV Q1H PRN [facility]-Ar 16-25 Magnesium Hydroxide 30 ml 03/12/22 01:08 Magnesium Hydroxide (Mom) Oral Liqd Udc PO Q4H PRN Constipation Morphine Sulfate 2 mg 03/12/22 01:08 Morphine 2 Mg/1 Ml Inj IV Q4H PRN Pain, Moderate (4-6) Morphine Sulfate 4 mg 03/12/22 01:08 Morphine 4 Mg/1 Ml Inj IV Q4H PRN Pain , Severe (7-10) Ondansetron HCl 4 mg 03/12/22 01:08 03/13/22 22:59 Ondansetron 4 Mg/2 Ml Inj IV 4 mg Q8H PRN Administration Nausea And Vomiting Sodium Chloride 10 ml 03/12/22 10:00 03/13/22 21:14 Sodium Chloride 0.9% 10 Ml Flush Syringe IV 10 ml BID YOLANDA Administration Sodium Chloride 10 ml 03/12/22 01:08 Sodium Chloride 0.9% 10 Ml Flush Syringe IV PRN PRN LINE FLUSH
[2022-03-14] MEDS ORDERED: POTASSIUM CHLORIDE ER 20 MEQ TAB PO SCH (14:30)
[2022-03-14 17:09] VITALS: BP 123/82
== END 2022-03-14 22:00 | disposition left against medical advice (07) | DRG 433 ==
LOC: ED 20:55 → 3A 03-12 01:09
PROVIDERS: ADMIT Internal Medicine Geriatric Medicine; ATTEND Hospitalist
DX: K70.9 Alcoholic liver disease, unspecified (principal); E87.2 Acidosis; E87.6 Hypokalemia; E83.42 Hypomagnesemia; Z20.822 Contact with and (suspected) exposure to COVID-19; F17.200 Nicotine dependence, unspecified, uncomplicated; Z53.29 Procedure and treatment not carried out because of patient's decision for other reasons; E78.5 Hyperlipidemia, unspecified; D64.9 Anemia, unspecified; D69.6 Thrombocytopenia, unspecified; E83.51 Hypocalcemia; R74.01 Elevation of levels of liver transaminase levels; E88.09 Other disorders of plasma-protein metabolism, not elsewhere classified; F10.10 Alcohol abuse, uncomplicated; Y90.9 Presence of alcohol in blood, level not specified; Z85.038 Personal history of other malignant neoplasm of large intestine; Z79.899 Other long term (current) drug therapy
CPT/HCPCS: 36415; 71045; 80048; 80053; 80320; 81001; 82140; 82550; 83735; 84100; 84132; 84443; 84484; 85007; 85025; 85610; 87040; 93005; G0378; J2704; J3490; 87502; G0480; J1644; J1885; J2060; J2250; J2405; J2765; J3411; J3475; J3480; J7030; U0003